=== PATIENT | female | born 1955 | race Caucasian/White ===

== ENCOUNTER → 2017-07-12 | Outpatient (CLI) | payer BC, OTHER | LOC: RAD 02:24 | DX: Z12.31 Encounter for screening mammogram for malignant neoplasm of breast (principal) ==

== ENCOUNTER → 2018-07-17 | Outpatient (CLI) | payer OTHER | LOC: RAD 01:13 | DX: Z12.31 Encounter for screening mammogram for malignant neoplasm of breast (principal) ==

== ENCOUNTER → 2019-07-28 | Outpatient (CLI) | payer OTHER | LOC: RAD 03:34 | DX: Z12.31 Encounter for screening mammogram for malignant neoplasm of breast (principal) ==